=== PATIENT | female | born 1940 | race Caucasian/White ===

== ENCOUNTER 2024-04-21 00:27 | Emergency (ER) | payer MEDICARE, BC ==
[~2024-04-21] VITALS: Ht 170.2 cm; Wt 65.0 kg
[2024-04-21] MEDS ORDERED: VANCOMYCIN IV 200 ML ONE (01:26)
[2024-04-21] MEDS ORDERED: DEXAMETHASONE SOD PHOSPHATE 10 MG INJ ONE (01:26)
[2024-04-21] MEDS ORDERED: CEFTRIAXONE /D5W 50ML IVPB **ER PYXIS IV ONE (01:26)
[2024-04-21] MEDS: IV NORMAL SALINE 1000 ML BAG IV ONE ×2 (01:30→03:30)
[2024-04-21] MEDS: CEFTRIAXONE 2 G in IV DEXTROSE 5% 100 ML IV ONE (01:30)
[2024-04-21] MEDS: DEXAMETHASONE SOD PHOSPHATE 4 MG INJ IV ONE (01:30)
[2024-04-21] MEDS: VANCOMYCIN IV 1,000 MG in IV DEXTROSE 5% 250 ML IV ONE (01:30)
[2024-04-21 01:40] LABS: BASOPHILS % (AUTO) 0.2 % (0.0-2.0); EOSINOPHILS % (AUTO) 0.1 % (0.0-7.0); HEMATOCRIT 26.4 % (31.2-41.9); HEMOGLOBIN 9.1 g/dL (10.9-14.3); LYMPHOCYTES # (AUTO) 0.7 K/uL (0.8-4.8); MEAN CORPUSCULAR HEMOGLOBIN 29.8 uug (24.7-32.8); MEAN CORPUSCULAR HGB CONC 35 g/dL (32.3-35.6); MEAN CORPUSCULAR VOLUME 86.3 fL (75.5-95.3); NEUTROPHILS # (AUTO) 7.2 K/uL (1.8-8.9); NEUTROPHILS % (AUTO) 80.7 % (38.5-71.5); PLATELET COUNT (AUTO) 206 K/uL (179-408); RED BLOOD CELL COUNT(AUTO) 3.06 MIL/uL (3.63-4.92); RED CELL DISTRIBUTION WIDTH 15.5 % (12.3-17.7); WHITE BLOOD COUNT (AUTO) 8.9 K/uL (3.8-11.8)
[2024-04-21] MEDS ORDERED: CEFTRIAXONE 1 G VIAL ONE (01:40)
[2024-04-21 02:35] LABS: ALANINE AMINOTRANSFERASE 19 U/L (14-59); ALKALINE PHOSPHATASE 29 U/L (50-136); ASPARTATE AMINOTRANSFERASE 10 U/L (15-37); BILIRUBIN,DIRECT < 0.1 mg/dL (0.0-0.2); BILIRUBIN,TOTAL 0.2 mg/dL (0.2-1.0); CARBON DIOXIDE 13 mmol/L (21-32); CHLORIDE 124 mmol/L (98-107); CREATININE 0.3 mg/dL (0.6-1.3); GLUCOSE 78 mg/dL (74-106); NT-PRO BNP 151 pg/mL (0-125); POTASSIUM 2.8 mmol/L (3.5-5.1); SODIUM SERUM 151 mmol/L (136-145); TOTAL PROTEIN, SERUM 2.3 g/dL (6.4-8.2); UREA NITROGEN, BLOOD 36 mg/dL (7-18)
[2024-04-21 02:37] LABS: CALCIUM < 5.0 mg/dL (8.5-10.1)
[2024-04-21] MEDS ORDERED: CALCIUM GLUCONATE 1 GM/10 ML VIAL IV ONE (03:37)
[2024-04-21] MEDS ORDERED: ALBUMIN HUMAN 25% 200 ML ONE (03:38)
[2024-04-21] MEDS: CALCIUM GLUCONATE IV 2 GM in IV NORMAL SALINE 100 ML IV ONE (03:40)
[2024-04-21] MEDS: ALBUMIN HUMAN 25% (12.5 GM/50 ML ) BOTTLE IV ONE (03:40)
[2024-04-21] MEDS ORDERED: MIRT-121 GT (04:32)
[2024-04-21] MEDS ORDERED: LACO10SO3 PO (04:32)
[2024-04-21] MEDS ORDERED: LINE600T15 PO (04:32)
[2024-04-21] MEDS ORDERED: METO25TA6 PO (04:32)
[2024-04-21] MEDS ORDERED: DEXA4TAB GT (04:32)
[2024-04-21] MEDS ORDERED: CHOL5POW GT (04:32)
[2024-04-21] MEDS ORDERED: ONDA4TAB5 GT (04:32)
[2024-04-21] MEDS ORDERED: FAMO10TA41 PO (04:32)
[2024-04-21] MEDS: POTASSIUM CHLORIDE 50 ML IV SCH (05:00)
[2024-04-21] MEDS ORDERED: REMEDY ESSENTIAL ZINC PASTE 113 GM TP PRN (05:15)
[2024-04-21] MEDS ORDERED: ONDANSETRON 4 MG/2 ML VIAL IV PRN (05:15)
[2024-04-21] MEDS ORDERED: ACETAMINOPHEN 650 MG SUPP.RECT RC PRN (05:15)
[2024-04-21] MEDS ORDERED: POTASSIUM CHLORIDE 300 ML ONE (05:42)
[2024-04-21 05:50] LABS: *BILIRUBIN,URIN NEGATIVE (NEGATIVE); *BLOOD, URINE 3+ (NEGATIVE); *CLARITY,URINE CLEAR (CLEAR); *COLOR,URINE YELLOW (YELLOW); *KETONES,URINE NEGATIVE (NEGATIVE); *UROBILINOGEN,URINE 0.2 E.U./dl (NORMAL); LEUKOCYTE ESTERASE ,URINE 1+ (NEGATIVE); NITRITE, URINE POSITIVE (NEGATIVE); PH,URINE 6.5 (5.0-8.0); UGLUCOSE NEGATIVE (NEGATIVE)
[2024-04-21 06:02] LABS: *PROTEIN,URINE 3+ (NEGATIVE)
[2024-04-21 06:31] LABS: BACTERIA,URINE MANY /HPF (NONE SEEN); RBC,URINE 20-50 /HPF (0-3); SQUAMOUS EPITHELIAL CELL,UR FEW /HPF (NONE SEEN)
[2024-04-21 06:32] LABS: URIC ACID CRYSTALS,URINE FEW /HPF (NONE SEEN); WAXY CASTS,URINE 0-3 /LPF (NONE SEEN)
[2024-04-21] MEDS: IV D5W 1000ML 1,000 ML IV SCH (08:22)
[2024-04-21 08:58] LABS: IRON, SERUM 73 ug/dL (50-175)
[2024-04-21] MEDS ORDERED: LACOSAMIDE 10 MG PO SCH (09:00)
[2024-04-21] MEDS ORDERED: DIPHENOXYLATE HCL/ATROP SULF TABLET ONE (09:03)
[2024-04-21] MEDS: DIPHENOXYLATE HCL/ATROP SULF TABLET PO ONE (09:16)
[2024-04-21 09:17] VITALS: O2SAT 99
[2024-04-21 10:21] LABS: EOSINOPHILS # (AUTO) 0.1 K/uL (0.0-0.7); EOSINOPHILS % (AUTO) 1.2 % (0.0-7.0); LYMPHOCYTES # (AUTO) 0.3 K/uL (0.8-4.8); LYMPHOCYTES % (AUTO) 4.3 % (20.5-51.5); MEAN CORPUSCULAR HEMOGLOBIN 30.3 uug (24.7-32.8); MEAN CORPUSCULAR HGB CONC 34 g/dL (32.3-35.6); MEAN CORPUSCULAR VOLUME 90.5 fL (75.5-95.3); MONOCYTES # (AUTO) 0.3 K/uL (0.1-1.30); MONOCYTES % (AUTO) 4.7 % (0.0-11.0); NEUTROPHILS # (AUTO) 6.5 K/uL (1.8-8.9); NEUTROPHILS % (AUTO) 89.8 % (38.5-71.5); PLATELET COUNT (AUTO) 172 K/uL (179-408); RED BLOOD CELL COUNT(AUTO) 2.65 MIL/uL (3.63-4.92); RED CELL DISTRIBUTION WIDTH 16.2 % (12.3-17.7); WHITE BLOOD COUNT (AUTO) 7.2 K/uL (3.8-11.8)
[2024-04-21 10:22] LABS: DIFFERENTIAL COMMENT 1
[2024-04-21 10:42] LABS: CALCIUM 9.3 mg/dL (8.5-10.1); CARBON DIOXIDE 17 mmol/L (21-32); CHLORIDE 106 mmol/L (98-107); CREATININE 0.8 mg/dL (0.6-1.3); GLUCOSE 132 mg/dL (74-106); POTASSIUM 4.9 mmol/L (3.5-5.1); SODIUM SERUM 137 mmol/L (136-145); UREA NITROGEN, BLOOD 35 mg/dL (7-18)
[2024-04-21 10:55] LABS: ALANINE AMINOTRANSFERASE 43 U/L (14-59); ALBUMIN 3.4 g/dL (3.4-5.0); ALKALINE PHOSPHATASE 41 U/L (50-136); ASPARTATE AMINOTRANSFERASE 19 U/L (15-37); BILIRUBIN,TOTAL 0.6 mg/dL (0.2-1.0); PHOSPHOROUS 2.9 mg/dL (2.5-4.9); TOTAL PROTEIN, SERUM 5.5 g/dL (6.4-8.2)
[2024-04-21] MEDS ORDERED: METOPROLOL TARTRATE 50 MG TABLET ONE (11:10)
[2024-04-21] MEDS ORDERED: DEXAMETHASONE 1 MG TABLET ONE (11:10)
[2024-04-21] MEDS ORDERED: PANTOPRAZOLE SODIUM 40 MG VIAL ONE (11:10)
[2024-04-21] MEDS: DEXAMETHASONE 4 MG TABLET GT SCH (11:12)
[2024-04-21] MEDS: PANTOPRAZOLE SODIUM 40 MG VIAL IV SCH (11:12)
[2024-04-21 11:13] VITALS: BP 130/58
[2024-04-21] MEDS: METOPROLOL TARTRATE 25 MG TABLET PO SCH (11:13)
[2024-04-21] MEDS: CEFTRIAXONE 1 G in IV DEXTROSE 5% 50 ML IV SCH (13:51)
[2024-04-21] MEDS ORDERED: MIRTAZAPINE 15 MG TABLET GT SCH (21:00)
== END 2024-04-21 14:22 | disposition short-term general hospital (02) ==
LOC: ER 00:49
DX: E86.0 Dehydration (principal); E88.09 Other disorders of plasma-protein metabolism, not elsewhere classified; E83.51 Hypocalcemia; D50.9 Iron deficiency anemia, unspecified; E43 Unspecified severe protein-calorie malnutrition; E87.6 Hypokalemia; R51.9 Headache, unspecified; G92.8 Other toxic encephalopathy; G93.89 Other specified disorders of brain; I11.9 Hypertensive heart disease without heart failure; Z79.899 Other long term (current) drug therapy; Z86.73 Personal history of transient ischemic attack (TIA), and cerebral infarction without residual deficits
CPT/HCPCS: 80076; 80053; 80048; 81001; 83880; 83550; 83735 ×2; 84100; 85025 ×2; 84145; 85730; 87040 ×2; 84484 ×2; 36415; 71045; 70450; 93005; 99291; 96361 ×2; 96365; 96367; 96368; 96375; 83605; 87086; J8540; P9047; J0610; J0696 ×3; J1100; J2470; J3480; J3370; J7040 ×2; A4606; A4663; C1758